=== PATIENT | male | born 1950 | race Caucasian/White ===

== ENCOUNTER 2019-07-18 07:14 | Emergency (ER) | payer MEDICARE ==
[~2019-07-18] VITALS: Ht 182.9 cm; Wt 101.5 kg
--- NOTE | 2019-07-18 07:53 | PHYS DOC ---
Past History Past Medical History: No Pertinent History Past Surgical History: No Surgical History Smoking: Cigarettes Alcohol Use: Occasionally Drug Use: Marijuana Adult General Chief Complaint Chief Complaint: FLU SYMPTOM HPI HPI Patient is a 69-year-old male presents complaining of diffuse abdominal pain t hat is slowly migrating to his right lower quadrant over the past 2 days. Nothing makes the discomfort better or worse. He ate at a local restaurant 2 days ago prior to onset of symptoms. He has been having subjective fever. No significant relief with Maalox or Tums. He did get some improvement with acetaminophen, last dose of acetaminophen was yesterday. He reports that yesterday he had no appetite but does have an appetite today. Describes the pain as mild to moderate in intensity, there is a burning sensation diffusely across the abdomen. Last oral intake of food was yesterday. He has no previous surgical history. Takes no medicines regularly. He is a smoker and occasional drinker.[] Review of Systems Review of Systems Constitutional: Denies fever or chills [] Eyes: Denies change in visual acuity, redness, or eye pain [] HENT: Denies nasal congestion or sore throat [] Respiratory: Denies cough or shortness of breath [] Cardiovascular: No chest pain or palpitations[] GI: See history of present illness, some nausea is present, no diarrhea or bloody stool. No recent travel.[] : Denies dysuria or hematuria [] Musculoskeletal: Denies back pain or joint pain [] Integument: Denies rash or skin lesions [] Neurologic: Denies headache, focal weakness or sensory changes [] Endocrine: Denies polyuria or polydipsia [] All other systems were reviewed and found to be within normal limits, except as documented in this note. Allergies Allergies Allergies Coded Allergies Type Severity Reaction Last Updated Verified Iodine and Iodide Containing Produc Allergy Unknown 07/18/19 Yes Penicillins Allergy Unknown 07/18/19 Yes Physical Exam Physical Exam Constitutional: Well developed, well nourished, no acute distress, non-toxic appearance. [] HENT: Normocephalic, atraumatic, bilateral external ears normal, oropharynx moist, no oral exudates, nose normal. [] Eyes: PERRLA, EOMI, conjunctiva normal, no discharge. [] Neck: Normal range of motion, no tenderness, supple, no stridor. [] Cardiovascular:Heart rate regular rhythm, no murmur [] Lungs & Thorax: Bilateral breath sounds clear to auscultation [] Abdomen: Bowel sounds normal, soft, diffuse tenderness, increased tenderness in the right lower quadrant, no rebound, no guarding, no rigidity, negative Rovsing, negative obturator and so as sign. Negative Cortez's sign, no masses, no pulsatile masses. [] Skin: Warm, dry, no erythema, no rash. [] Back: No tenderness, no CVA tenderness. [] Extremities: No tenderness, no cyanosis, no clubbing, ROM intact, no edema. [] Neurologic: Alert and oriented X 3, normal motor function, normal sensory function, no focal deficits noted. [] Psychologic: Affect normal, judgement normal, mood normal. [] Current Patient Data Vital Signs Vital Signs Date Time Temp Pulse Resp B/P (MAP) Pulse Ox O2 Delivery O2 Flow Rate FiO2 07/18/19 07:31 97.9 67 11 96 Room Air EKG EKG [] Radiology/Procedures Radiology/Procedures PROCEDURE: CT ABDOMEN PELVIS WO CONTRAST CT ABDOMEN PELVIS WO CONTRAST INDICATION: Right lower quadrant abdominal pain, nausea EXAM: Noncontrast CT of the abdomen and pelvis. Coronal and sagittal reformatted images were performed. PQRS compliance statement: One or more of the following individualized dose reduction techniques were utilized for this examination: 1. Automated exposure control 2. Adjustment of the mA and/or kV according to patient size 3. Use of iterative reconstruction technique COMPARISON: None FINDINGS: Lower chest: Calcified pulmonary granulomas. Calcified hilar lymph nodes consistent with remote granulomatous disease. Middle lobe atelectasis. Scattered subsegmental atelectasis. ABDOMEN: Liver: Normal hepatic size. Calcified hepatic granulomas. Gallbladder and biliary: Prominent 1.2 cm gallstone in the gallbladder neck. Mild pericholecystic stranding. Normal caliber bile ducts. Spleen: Calcified splenic granulomas. Pancreas: The noncontrast pancreas is homogeneous in attenuation without peripancreatic inflammatory changes. Adrenal glands: Right adrenal adenoma measuring 1.5 cm (10 Hounsfield units) and left adrenal adenoma measuring 1.2 cm (4 Hounsfield units). Kidneys and ureters: No opaque urinary calculi. No hydronephrosis. Left renal exophytic cyst measuring 2.2 cm. GI tract: The stomach is decompressed and poorly evaluated. Normal caliber small bowel and colon. Sigmoid predominant colonic diverticulosis. Normal appendix. Vascular structures: Normal caliber abdominal aorta. Lymph nodes: No lymphadenopathy in the abdomen or pelvis. PELVIS: Genitourinary system: Urinary bladder is partially distended and demonstrates circumferential bladder wall thickening. SKELETAL STRUCTURES AND SOFT TISSUES: Multilevel degenerative changes of the spine. Normal size prostate. IMPRESSION: 1. Gallstone in the gallbladder neck with mild pericholecystic inflammatory stranding. Correlate with laboratory values, and if there is concern for acute cholecystitis ultrasound could be obtained. 2. Mild circumferential bladder wall thickening. This may be due to underdistention or potentially cystitis. Consider urinalysis. 3. Diverticulosis without evidence of acute diverticulitis.[] Course & Med Decision Making Course & Med Decision Making Pertinent Labs and Imaging studies reviewed. (See chart for details) ED course: Patient arrived, was placed in bed, and tolerated exam well. He was given medicine for nausea and vomiting as well as for abdominal discomfort, and patient had no episodes of vomiting while in the emergency department. He was transported to and from radiology with any complications. After return lab and imaging studies, these were discussed with the patient and his family who voiced understanding. All questions were answered. He was discharged in improved condition. Medical decision making: Patient with abdominal pain without any evidence of cholecystitis. Patient reported that he has previously been ultrasounded on his gallbladder and noted to have a gallstone. This is not like the discomfort when he had his previous "gallbladder attack." There is no evidence of this being influenza. No evidence of oral intake intolerance. No evidence of intractable pain. No evidence of obstruction, perforation, urinary tract infection, pancreatitis, or appendicitis.[] Dragon Disclaimer Dragon Disclaimer This electronic medical record was generated, in whole or in part, using a voice recognition dictation system. Departure Departure: Impression: Primary Impression: Abdominal pain Disposition: 01 HOME, SELF-CARE Condition: IMPROVED Referrals: [facility] (PCP) Patient Instructions: Abdominal Pain Additional Instructions: Drink plenty of fluids, frequent small sips. No fatty foods, no milk, and no pepper for the next 48 hours. For the next 48 hours eat a diet rich in carbo hydrates with foods such as bananas, rice, applesauce, and toast. You have a gallstone that was noted on the CT scan. This is not causing today's symptoms. However, this should be followed by her primary care physician. Follow-up with your primary care physician in 2-3 days. If you do not have a primary care physician a list of local clinics will be provided. Return to the ER if wo rsening pain, unable to tolerate liquids, blood in stool or emesis, or any other concerns. Scripts Tramadol Hcl (TRAMADOL HCL) 50 Mg Tablet 50 MG PO PRN Q6HRS PRN for PAIN, #20 TAB Prov: KIANA GABRIEL DO 07/18/19 Dicyclomine Hcl (DICYCLOMINE HCL) 20 Mg Tablet 1 TAB PO TID for abdominal pain, #30 TAB Prov: KIANA GABRIEL DO 07/18/19 Metoclopramide Hcl (REGLAN) 10 Mg Tablet 10 MG PO QID for nausea and vomiting, #30 TAB Prov: KIANA GABRIEL DO 07/18/19 Problem Qualifiers Primary Impression: Abdominal pain Abdominal location: generalized Qualified Codes: R10.84 - Generalized abdominal pain KIANA GABRIEL DO Jul 18, 2019 07:53
[2019-07-18] MEDS ORDERED: ONDANSETRON PF 4 MG/2 ML VIAL. IVP ONE (08:00)
[2019-07-18] MEDS ORDERED: HYOSCYAMINE 0.125 MG TAB.RAPDIS PO ONE (08:00)
[2019-07-18 08:20] LABS: BASO % 0 % (0-3); EOS # 0.1 x10^3/uL (0.0-0.7); EOS % 1 % (0-3); LYMPH # 1.1 x10^3/uL (1.0-4.8); LYMPH % 10 % (24-48); MEAN CORPUSCULAR HEMOGLOBIN 32 pg (25-35); MEAN CORPUSCULAR HGB CONC 33 g/dL (31-37); MEAN CORPUSCULAR VOLUME 95 fL (79-100); MONO # 0.8 x10^3/uL (0.0-1.1); MONO % 8 % (0-9); NEUT # 8.6 x10^3uL (1.8-7.7); NEUT % 81 % (31-73); PLATELET COUNT 250 x10^3/uL (140-400); RED BLOOD COUNT 4.73 x10^6/uL (4.30-5.70); RED CELL DISTRIBUTION WIDTH 13.1 % (11.5-14.5); WHITE BLOOD COUNT 10.6 x10^3/uL (4.0-11.0)
[2019-07-18 08:35] LABS: ALBUMIN 3.6 g/dL (3.4-5.0); CALCIUM 8.6 mg/dL (8.5-10.1); CREATININE 0.9 mg/dL (0.7-1.3); GFR 84.2; POTASSIUM 3.9 mmol/L (3.5-5.1); TOTAL BILIRUBIN 0.7 mg/dL (0.2-1.0); TOTAL PROTEIN 7.1 g/dL (6.4-8.2)
[2019-07-18 08:36] LABS: INFLUENZA A PATIENT NEGATIVE (NEGATIVE)
[2019-07-18 08:37] LABS: INFLUENZA B PATIENT NEGATIVE (NEGATIVE)
--- NOTE | 2019-07-18 08:38 | RAD ---
CT ABDOMEN PELVIS WO CONTRAST INDICATION: Right lower quadrant abdominal pain, nausea EXAM: Noncontrast CT of the abdomen and pelvis. Coronal and sagittal reformatted images were performed. PQRS compliance statement: One or more of the following individualized dose reduction techniques were utilized for this examination: 1. Automated exposure control 2. Adjustment of the mA and/or kV according to patient size 3. Use of iterative reconstruction technique COMPARISON: None FINDINGS: Lower chest: Calcified pulmonary granulomas. Calcified hilar lymph nodes consistent with remote granulomatous disease. Middle lobe atelectasis. Scattered subsegmental atelectasis. ABDOMEN: Liver: Normal hepatic size. Calcified hepatic granulomas. Gallbladder and biliary: Prominent 1.2 cm gallstone in the gallbladder neck. Mild pericholecystic stranding. Normal caliber bile ducts. Spleen: Calcified splenic granulomas. Pancreas: The noncontrast pancreas is homogeneous in attenuation without peripancreatic inflammatory changes. Adrenal glands: Right adrenal adenoma measuring 1.5 cm (10 Hounsfield units) and left adrenal adenoma measuring 1.2 cm (4 Hounsfield units). Kidneys and ureters: No opaque urinary calculi. No hydronephrosis. Left renal exophytic cyst measuring 2.2 cm. GI tract: The stomach is decompressed and poorly evaluated. Normal caliber small bowel and colon. Sigmoid predominant colonic diverticulosis. Normal appendix. Vascular structures: Normal caliber abdominal aorta. Lymph nodes: No lymphadenopathy in the abdomen or pelvis. PELVIS: Genitourinary system: Urinary bladder is partially distended and demonstrates circumferential bladder wall thickening. SKELETAL STRUCTURES AND SOFT TISSUES: Multilevel degenerative changes of the spine. Normal size prostate. IMPRESSION: 1. Gallstone in the gallbladder neck with mild pericholecystic inflammatory stranding. Correlate with laboratory values, and if there is concern for acute cholecystitis ultrasound could be obtained. 2. Mild circumferential bladder wall thickening. This may be due to underdistention or potentially cystitis. Consider urinalysis. 3. Diverticulosis without evidence of acute diverticulitis. Electronically signed by: Rai Ballesteros MD (07/18/2019 8:35 AM) [facility]
[2019-07-18 08:44] LABS: BILIRUBIN,URINE NEG (NEG); CLARITY,URINE HAZY; COLOR,URINE AMBER; GLUCOSE,URINE NEG (NEG)
[2019-07-18 08:45] LABS: BACTERIA,URINE FEW /HPF (0-FEW); NITRITE,URINE NEG (NEG); SQUAMOUS EPITHELIAL CELL,UR FEW /LPF; UROBILINOGEN,URINE 0.2 mg/dL (0.2 mg/dL)
[2019-07-18] MEDS ORDERED: DICY20TA3 PO (08:58)
[2019-07-18] MEDS ORDERED: METO10TA81 PO (08:58)
[2019-07-18] MEDS ORDERED: TRAM50TA PO (08:58)
[2019-07-18 09:08] VITALS: BP 142/80
== END 2019-07-18 09:08 | disposition home or self-care (01) ==
LOC: ER 07:14
DX: R10.84 Generalized abdominal pain (principal); K57.30 Diverticulosis of large intestine without perforation or abscess without bleeding; F17.210 Nicotine dependence, cigarettes, uncomplicated; Z88.0 Allergy status to penicillin; Z91.041 Radiographic dye allergy status
CPT/HCPCS: 36415; 74176; 80053; 81001; 83690; 84484; 85025; 87804; 96374; 99285; J2405